=== PATIENT | male | born 1980 | race Two or more races ===

== ENCOUNTER 2017-02-16 00:34 | Emergency (ER) | payer MEDICAID ==
[~2017-02-16] VITALS: Ht 170.2 cm; Wt 79.4 kg
[2017-02-16 00:45] VITALS: BP 131/78
[2017-02-16 01:43] LABS: CONDITION Y; DEFINITIVE SEE PRINTOUT; Hematocrit 33.6 % (41.0-53.0); Hemoglobin 11.8 g/dL (13.5-17.5); Mean Corpuscular Hemoglobin 36.2 pg (28.0-32.0); Mean Corpuscular Hgb Conc. 35.2 g/dL (32.0-36.0); Mean Corpuscular Volume 103.1 fL (80.0-100.0); Mean Platelet Volume 9.6 fL (7.4-10.4); Platelet Count (auto) 147 10^3/uL (140-450); Red Cell Distribution Width 17.5 % (11.6-16.0); SUSPECT SEE PRINTOUT; White Blood Cell 27.6 10^3/uL (4.4-10.8)
[2017-02-16 01:58] LABS: Metamyelocytes % 0; Promyelocytes % 0; Reactive Lymphocytes 0
[2017-02-16 02:08] LABS: Albumin 2.1 g/dL (3.4-5.0); Anion Gap 12 (5-15); Aspartate Aminotransferase 145 U/L (15-37); Blood Urea Nitrogen 20 mg/dL (7-18); Calcium 7.8 mg/dL (8.5-10.1); Carbon Dioxide 24 mmol/L (21-32); Chloride 85 mmol/L (98-107); GFR African American 120 mL/min; GFR Non-African American 99 mL/min; Glucose 125 mg/dL (74-106); Potassium 5.1 mmol/L (3.5-5.1); Sodium 121 mmol/L (136-145)
[2017-02-16 02:20] LABS: Alkaline Phosphatase 217 U/L (45-117); Bilirubin, Total 28.5 mg/dL (0.2-1.0)
[2017-02-16 02:24] LABS: Myelocytes % 1; Platelet Estimate Adequate
[2017-02-16 02:25] LABS: Anisocytosis Slight; Macrocytosis Slight
[2017-02-16 02:29] LABS: Total Protein 6.4 g/dL (6.4-8.2)
== END 2017-02-16 06:45 | disposition left against medical advice (07) ==
LOC: ER 00:34 → EDBD 00:34 → ER 06:45
DX: R06.02 Shortness of breath (principal); Z53.21 Procedure and treatment not carried out due to patient leaving prior to being seen by health care provider
CPT/HCPCS: 36415; 71010; 80053; 84484; 85007; 85027; 93005